=== PATIENT | female | born 1950 | race Caucasian/White ===

== ENCOUNTER 2024-04-04 14:27 | Emergency (ER) | payer MEDICARE, BC ==
[2024-04-04] MEDS: Ketorolac 30 MG/ML SDV IVPUSH ONE (15:41)
[2024-04-04] MEDS: Ondansetron 4 MG/2 ML SDV IVPUSH ONE (16:42)
[2024-04-04] MEDS: Ketamine 200 MG/20 ML MDV IVPUSH ONE ×2 (16:50→17:44)
[2024-04-04] MEDS ORDERED: LORazepam 2 MG/ML SDV ONE (16:56)
[2024-04-04] MEDS: LORazepam 2 MG/ML SDV IVPUSH ONE (17:44)
== END 2024-04-04 19:18 | disposition home or self-care (01) ==
LOC: JD.ED 14:27
DX: S52.502A Unspecified fracture of the lower end of left radius, initial encounter for closed fracture (principal); S52.602A Unspecified fracture of lower end of left ulna, initial encounter for closed fracture; Z88.0 Allergy status to penicillin; Z88.1 Allergy status to other antibiotic agents; Z88.5 Allergy status to narcotic agent; Z88.2 Allergy status to sulfonamides; W00.0XXA Fall on same level due to ice and snow, initial encounter
CPT/HCPCS: 25605; 73090; 73100; 73110; 73120; 96374; 96375; 99283; J1885; J2060; J2405; J3490; 99152; 99284

== ENCOUNTER 2024-04-12 11:03 | Day surgery (SDC) | payer MEDICARE, BC ==
[2024-04-12] MEDS: Lactated Ringers 1,000 ML IV SCH (11:15)
[2024-04-12] MEDS ORDERED: Propofol 200 MG/20 ML SDV ONE ×2 (11:58→12:21)
[2024-04-12] MEDS: Ketorolac 30 MG/ML SDV IVPUSH SCH (13:03)
[2024-04-12] MEDS: fentaNYL 100 MCG/2 ML SDV IVPUSH PRN (13:25)
[2024-04-12] MEDS ORDERED: Sodium Chloride 0.9% 10 ML Syringe FLUSH PRN (13:41)
[2024-04-12] MEDS ORDERED: Sodium Chloride 0.9% 10 ML Syringe FLUSH SCH (13:45)
== END 2024-04-12 14:05 | disposition home or self-care (01) ==
LOC: JD.SDS 11:03
PROVIDERS: ATTEND Orthopaedic Surgery
DX: S52.502A Unspecified fracture of the lower end of left radius, initial encounter for closed fracture (principal); S52.602A Unspecified fracture of lower end of left ulna, initial encounter for closed fracture; Z88.1 Allergy status to other antibiotic agents; Z88.0 Allergy status to penicillin; Z88.8 Allergy status to other drugs, medicaments and biological substances; Z88.2 Allergy status to sulfonamides; Z79.899 Other long term (current) drug therapy; Z79.890 Hormone replacement therapy; W00.0XXA Fall on same level due to ice and snow, initial encounter; Y93.H1 Activity, digging, shoveling and raking
CPT/HCPCS: 25605; 76000; J1885; J2704; J3010; J7120